=== PATIENT | female | born 1940 | race Caucasian/White ===

== ENCOUNTER 2016-09-13 15:16 | Emergency (ER) | payer OTHER ==
[2016-09-13] MEDS ORDERED: ONDANSETRON DISINTEGRATING 4 MG TAB ONE (15:43)
--- NOTE | 2016-09-13 15:58 | UCPHY ---
Addendum entered and electronically signed by Louise Major NP 09/13/16 17:29 : Add to medical decision-making: Patient able to ambulate steady without assistance prior to discharge. Please removed from medical decision making: No procedure was performed on this patient as she did not have a laceration to her posterior head, she had an abrasion only. Please removed the procedure note. Original Note: H & P Patient Type: Established Chief Complaint Nursing Narrative: Head injury, vertigo, nausea Time Seen by Provider: 09/13/16 15:40 HPI/ROS: HPI: 75-year-old female presents to urgent care with chief concern vertigo, head injury, nausea. Symptoms onset at 2:00 p.m. when she slipped on the ice and fell backwards striking her head on concrete. Likely loss of consciousness. Reports vertigo, nausea, vomiting, and her reports an uncoordinated gait. Reports neck pain. Denies visual changes, photophobia, shortness of breath, chest pain, back pain, abdominal pain. Denies weakness, numbness, or tingling of her extremities. Patient takes 2 aspirin twice daily as directed by her program planner Dr. Funes. ROS:10 point review of systems is negative other than as stated in HPI Source: Patient Exam Limitations: No limitations - Personal History Tetanus Vaccine Date: 2012 - Medical/Surgical History Hx Asthma: No Hx Chronic Respiratory Disease: No Hx Diabetes: No Hx Cardiac Disease: Yes Hx Renal Disease: No Hx Cirrhosis: No Hx Alcoholism: No Hx HIV/AIDS: No Hx Splenectomy or Spleen Trauma: No Other PMH: HYPOTHYROIDISM, polio as a child, heart failure. TONSILECTOMY. APPENDECTOMY. HYSTERECTOMY - Family History Significant Family History: No pertinent family hx - Social History Smoking Status: Former smoker Alcohol Use: None Drug Use: None Additional Social History: - Physical Exam Exam: Vital signs stable, reviewed by me General: Awake, calm, cooperative. No acute distress. Head: Normalocephalic, abrasion posterior head with minimal bleeding, no laceration, no ecchymosis or swelling noted Face: Atraumatic EENT: PERRLA. EOMI. No papilledema. no conjunctival injection or hemorrhage. TMs intact, translucent. No evidence of bleeding or otorrhea. Nasal septum midline, nasal mucosa pink. no evidence of drainage. Uvula midline, pharynx without redness. Neck: Mild midline tenderness Resp: Breathing unlabored. Lungs clear to auscultation bilaterally. CV: HRR. S1S2. No MRG. GI: Abdomen soft, nontender. Bowel sounds normoactive and positive x4 quadrants. : No CVA tenderness. Back: No midline thoracic or lumbar tenderness Skin: Warm, dry. No rashes noted. Capillary refill less than 2 seconds. Musculoskeletal: Strength equal and 5+ in all 4 extremities. Neuro: No focal neuro deficit. CN II through XII intact. Rapid alternating hand movements intact. Finger to nose intact. Memory and recall of 3/3 objects at 5 minutes intact. Upper and lower extremity DTRs 2+. Extremities: Full range of motion. Constitutional: Initial Vital Signs Temperature (C) 35.6 C L 09/13/16 15:59 Heart Rate 55 L 09/13/16 15:59 Respiratory Rate 24 H 09/13/16 15:59 Blood Pressure 141/86 H 09/13/16 15:59 O2 Sat (%) 100 09/13/16 15:59 O2 Delivery Mode Room Air Allergies/Adverse Reactions: No Known Allergies Allergy (Verified 09/13/16 16:03) Home Medications: Medication Instructions Recorded Avapro 08/26/09 Synthroid 08/26/09 Aspirin [Aspirin 81mg (*)] 09/13/16 Meclizine HCl [Antivert] 25 mg PO Q8 PRN #6 tablet 09/13/16 Ondansetron Odt [Zofran Odt 4 mg 4 mg PO Q4 PRN #6 tab 09/13/16 (*)] Vit E/Vit C/Magnesium/Zinc [Ecee 09/13/16 Plus Tablet] Medical Decision Making Procedures: After verbal consent was obtained and risks and benefits explained, the laceration was anesthetized using a total of [ ] ml of 0.5% Marcaine with epinephrine. Lac then irrigated per protocol by infrastructure technician. Under sterile procedure, the wound was explored to its base with a gloved finger and no foreign body was identified. No deep structure identified. Wound was then draped and sterile procedure followed during laceration repair. Wound was repaired using # [ ], [ ] sutures. After repair, laceration cleansed, bacitracin and sterile dressing applied. Procedure performed by myself. Procedure was simple. Pt tolerated the procedure well. ED Course/Re-evaluation: 75-year-old female presents to urgent care with head injury, status post fall, vertigo, nausea, vomiting. Also has midline cervical spine tenderness. Head CT without and cervical spine without ordered. Patient given 4 mg Zofran ODT for nausea. 1625: CT negative for evidence of intracranial bleed, or skull fracture. Patient continues to have nausea and vertigo. Given 8 mg ODT Zofran and 25 mg meclizine. Have counseled them regarding need for follow-up with primary care tomorrow, as well as symptoms for which to go to emergency department for further workup which includes worsening symptoms, vomiting, visual changes, dizziness, or worsening gait changes. and verbalize understanding , they are comfortable this plan. Differential Diagnosis: Differential diagnosis includes but is not limited to head injury, concussion, skull fracture, laceration, intracranial bleed, intracranial contusion, vertebral artery dissection - Data Points Medications Given: Discontinued Medications Meclizine HCl (Meclizine Hcl) 25 mg PO EDNOW ONE Stop: 09/13/16 16:29 Last Admin: 09/13/16 16:48 Dose: 25 mg Ondansetron HCl (Zofran Odt) 8 mg PO EDNOW ONE Stop: 09/13/16 16:30 Last Admin: 09/13/16 16:48 Dose: 8 mg Departure - Departure Disposition: Home, Routine, Self-Care Clinical Impression: Mechanical fall, Vertigo Head injury due to trauma Qualifiers: Encounter type: initial encounter Qualifier Code: (S09.90XA) Unspecified injury of head, initial encounter Cervical strain Qualifiers: Encounter type: initial encounter Qualifier Code: (S16.1XXA) Strain of muscle, fascia and tendon at neck level, initial encounter Concussion Qualifiers: Encounter type: initial encounter Loss of consciousness presence/duration: with LOC of unspecified duration Qualifier Code: (S06.0X9A) Concussion with loss of consciousness of unspecified duration, initial encounter Condition: Fair Instructions: Vertigo (ED), Acute Nausea and Vomiting (ED) Additional Instructions: Plan: 25 mg Antivert 3 every 8 hours as needed for vertigo 4 mg Zofran every 4-6 hours as needed for nausea Wound care to back of head-warm, soapy water, bacitracin, do this daily Follow up with Zarina Romano tomorrow for recheck without fail--When you call to schedule appointment, please let the office know you are an "ER follow up" appointment" Should symptoms worsen overnight including vomiting, vertigo, behavioral changes , lethargy, or other concerning symptoms, call 911 or go to emergency department at [facility] Referrals: Zarina Romano MD [Primary Care Provider] - As per Instructions Prescriptions: Meclizine HCl [Antivert] 25 mg PO Q8 PRN #6 tablet PRN Reason: Vertigo Ondansetron Odt [Zofran Odt 4 mg (*)] 4 mg PO Q4 PRN #6 tab PRN Reason: nausea & vomiting - PQRS PQRS Measurement: 134: Depression screening and followup, PRIME MD-PHQ2 (12 years and older) Over the last 2 weeks, how often have you been bothered by any of the following problems? 1. Feeling down, depressed, or hopeless? 2. Little interest or pleasure in doing things? Patient answered no to both 1 and 2 130: Documentation of medications. Reviewed all patient medications, doses, route and frequency. 226: Do you smoke? No 47: 65 and older: Advanced care planning. Patient has advanced directive 51: 18 years old and older with diagnosis of COPD, spirometry performance. Patient has no history of COPD 52: 18 years old and older with COPD and symptoms of COPD or FEV1<60% no history of COPD
[2016-09-13 16:28] VITALS: RESP 20
[2016-09-13] MEDS ORDERED: MECLIZINE HCL 25 MG TAB PO ONE (16:28)
[2016-09-13] MEDS ORDERED: ONDANSETRON DISINTEGRATING 4 MG TAB PO ONE (16:29)
[2016-09-13 17:40] VITALS: BP 156/78; PULSE 52; TEMP 97; O2SAT 100
--- NOTE | 2016-09-13 18:30 | CT ---
CT Brain (Without Contrast) September 13, 2016 at 1554 hours History: Trauma. Comparison: None. Technique: Axial computed tomographic images of the brain without contrast. Dose reduction techniques were utilized. Findings: Ventricles, cisterns, and sulci are widened consistent with atrophy. No hydrocephalus, mid line shift/herniation, or epidural/subdural hematomas. No acute intraparenchymal hemorrhage or mass e ffect. Cerebrovascular atherosclerosis. Hypodensities in the white matter of bilateral cerebral hemis pheres. Bone windows demonstrate no displaced fractures. Paranasal sinuses and mastoid air cells are clear. Impression: 1. Moderate atrophy. 2. No acute hemorrhage, hydrocephalus, or mass effect. 3. Cerebrovascular atherosclerosis. 4. No definite acute infarct. 5. Moderate microvascular ischemic disease.. Critical results relayed by Dr. Arsenio Crabtree to Louise Major NP, on September 13, 2016, at 1600 hours
--- NOTE | 2016-09-13 18:30 | CT ---
CT cervical spine without contrast. Clinical indication: Trauma, pain. Technique: 0.63 mm contiguous helical axial scanning through the cervical spine without contrast. Rou nicole reconstructions in the coronal and sagittal planes. Dose reduction technique was performed. COMPARISON: None relevant. FINDINGS: Bony alignment of the spine is normal, except for a small amount of anterolisthesis of L3 o n L4 secondary to a large amount of productive osteoarthritic change of the facet joints, worse on th e right than on the left. There is severe degenerative disk disease at C5-6, C6-7, and less severe at C7-T1. No evidence of fracture or dislocation. The upper lungs show some mild scarring. 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
== END 2016-09-13 17:21 | disposition home or self-care (01) ==
LOC: CED 15:16
DX: S00.91XA Abrasion of unspecified part of head, initial encounter (principal); S06.0X9A Concussion with loss of consciousness of unspecified duration, initial encounter; S16.1XXA Strain of muscle, fascia and tendon at neck level, initial encounter; W00.0XXA Fall on same level due to ice and snow, initial encounter; Z87.891 Personal history of nicotine dependence; Z87.74 Personal history of (corrected) congenital malformations of heart and circulatory system
CPT/HCPCS: 70450; 72125; G0463; 99215-PO

== ENCOUNTER → 2016-10-03 | Outpatient (CLI) | payer OTHER ==
--- NOTE | 2016-10-03 18:23 | CT ---
Unenhanced CT Scan of the Chest Clinical History: 75-year-old female who smoked for 15 years, although quit 25 years ago. She has a history of skin cancer. She presents for follow up of likely benign tiny pulmonary nodules seen on p revious imaging in 2015. Technique: A multidetector unenhanced helical CT scan was obtained from the base of the neck inferio rly to the upper abdomen, with images reformatted at 1.50 and 4/3 mm overlapping increments, and revi ewed at a variety of window and level settings. Parasagittal and paracoronal reconstructed images ar e reviewed on the workstation. The DFOV is 30.7 cm. A low dose protocol was utilized. Comparison Studies: Chest CT imaging dated March 15, 2016 and September 30, 2015. Findings: There is some stable chronic biapical pleuroparenchymal fibrosis. Again, there is a 3-mm calcified granuloma in the medial right upper lobe on series #4, image #36, a 4-mm subpleural noncalc ified nodule along the medial portion of the right major fissure on series #4, image #63, a 2-mm subp leural nodule laterally in the right lower lobe on series #4, image #89, a 7-mm calcified granuloma i n the superior segment of the left lower lobe on series #4, image #82, a 3-mm noncalcified pulmonary nodule in the posterior right lower lobe on series #4, image #101, a 2-mm calcified granuloma in the posterior right lower lobe on series #4, image #104, and a 2-mm calcified granuloma in the lateral ri ght lower lobe on series #4, image #123. These are all stable. There is no new pulmonary nodule, focal alveolar consolidation, pleural effusion, ground-glass opacit y, or peripheral interstitial edema. There is no adenopathy. There is stable ectasia of the ascendi ng thoracic aorta, measuring 3.8 x 3.8 cm. The heart size is normal. There is no pericardial effusi on. The visualized upper abdomen is unremarkable. The osseous structures are age-appropriate. Impression: No significant change in the stable benign findings, compared to previous studies from 2 016. No further follow up is warranted.
== END ==
LOC: FIMAGING 11:47
PROVIDERS: ATTEND Internal Medicine Critical Care Medicine
DX: R91.1 Solitary pulmonary nodule (principal); Z87.891 Personal history of nicotine dependence; Z85.828 Personal history of other malignant neoplasm of skin

== ENCOUNTER → 2017-02-03 | Outpatient (CLI) | payer OTHER | LOC: FIMAGING 14:21 | PROVIDERS: ATTEND Internal Medicine Cardiovascular Disease | DX: I67.2 Cerebral atherosclerosis (principal); I67.82 Cerebral ischemia; S09.90XD Unspecified injury of head, subsequent encounter ==

== ENCOUNTER → 2017-03-03 | Outpatient (CLI) | payer OTHER | LOC: FIMAGING 14:41 | PROVIDERS: ATTEND Internal Medicine Cardiovascular Disease | DX: R55 Syncope and collapse (principal); G93.9 Disorder of brain, unspecified ==

== ENCOUNTER 2017-08-30 19:08 | Inpatient (IN) | payer OTHER ==
[2017-08-30] MEDS ORDERED: NS 500 ML IV ONE (20:05)
--- NOTE | 2017-08-30 20:10 | EDPHY ---
H & P Time Seen by Provider: 08/30/17 19:54 HPI/ROS: CHIEF COMPLAINT: Vomiting, right leg pain, difficulty speaking HISTORY OF PRESENT ILLNESS: Patient is a 76-year-old female who presents emergency department multiple complaints. The patient went for walk this afternoon and she was feeling well. When she was returning home she developed right leg pain. This radiated into her right lower back. She laid on the couch. After about 20 min she had an episode of nausea and vomiting. She describes some mild abdominal discomfort that is resolved. She has no abdominal pain at this time. The patient's heart rates that she had difficulty speaking after her episode of emesis. She was unable to find words. The patient denies any headache or neck pain. No recent fall. No confusion. No focal weakness or numbness. Patient denies cough or shortness of breath. No sore throat. Patient has had no diarrhea. No dysuria or frequency. REVIEW OF SYSTEMS: My complete review of systems is negative except as mentioned in the HPI. Past Medical/Surgical History: Includes hypothyroidism, polio as a child, heart failure that is being treated by Dr. Funes. Patient has severe microscopic gliosis. Past surgical history: Includes tonsillectomy, appendectomy, hysterectomy Smoking Status: Former smoker Physical Exam: 37.5, 132/73, 94, 20, 92% on room air GENERAL: Well-appearing, in no acute distress, alert. HEENT: Eyes normal to inspection, normal pharynx, no signs of dehydration. NECK: No thyromegaly, no lymphadenopathy, supple. RESPIRATORY: Clear to auscultation bilaterally, no rales, rhonchi or wheezing. CVS: Regular rate and rhythm, no rubs, murmurs, or gallops. ABDOMEN: Soft, nontender, nondistended, no organomegaly. BACK: Normal to inspection, no CVA tenderness. SKIN: Normal color, no rash, warm, dry. No pallor. EXTREMITIES: No pedal edema, no calf tenderness, no Homans sign or cords, no joint swelling. NEURO/PSYCH: Alert and oriented x3, normal mood and affect, normal motor sensory exam. No obvious cranial nerve deficit. Constitutional: Initial Vital Signs Temperature (C) 37.5 C 08/30/17 19:22 Heart Rate 94 08/30/17 19:22 Respiratory Rate 20 08/30/17 19:22 Blood Pressure 132/73 H 08/30/17 19:22 O2 Sat (%) 92 08/30/17 19:22 O2 Delivery Mode Room Air Allergies/Adverse Reactions: No Known Allergies Allergy (Verified 08/30/17 19:22) Home Medications: Medication Instructions Recorded Avapro 08/26/09 Synthroid 08/26/09 Aspirin [Aspirin 81mg (*)] 09/13/16 Meclizine HCl [Antivert] 25 mg PO Q8 PRN #6 tablet 09/13/16 Ondansetron Odt [Zofran Odt 4 mg 4 mg PO Q4 PRN #6 tab 09/13/16 (*)] Vit E/Vit C/Magnesium/Zinc [Ecee 09/13/16 Plus Tablet] Medical Decision Making - Diagnostics Imaging Results: Imaging Impressions Head CT 08/30/17 20:05 Impression: 1. No acute abnormality. 2. Remote lacunar infarct in the right anterior limb internal capsule. 3. Severe microvascular ischemic change throughout the supratentorial white matter. 4. Mild age-related volume loss. Dr. West discussed these findings by telephone with MACHO NICOLE on 2017 21:13. Chest X-Ray 08/30/17 20:06 Impression: No acute thoracic abnormality. ED Course/Re-evaluation: In the emergency department I discussed possible etiologies with the patient. I answered all her questions. It was noted that when she was brought back to room she had an elevated temperature. Laboratory studies, EKG, chest x-ray, head CT were ordered. Blood cultures are pending. Reviewed the patient's lab studies. Her white count is normal. She is mildly anemic. Chemistry panel is notable for slightly low potassium. She is minimally elevated LFTs. UA is positive. Chest x-ray: No acute disease Head CT: Please refer the dictated report by Dr. Kavin Johnson Influenza negative The patient was given Rocephin 1 g IV I discussed the result with the patient. On recheck she had no focal neurologic deficits. I discussed the findings with Dr. Valdez who will admit the patient for further observation. Differential Diagnosis: Differential includes but is not limited to ACS, acute SC, small-bowel obstruction, perforation, pancreatitis, cholecystitis, urinary tract infection, pyelonephritis, CVA dissection, aneurysm, thyroid disease - Data Points Laboratory Results: Laboratory Results 08/30/17 19:50 08/30/17 19:50 08/30/17 08/30/17 08/30/17 19:50 19:50 19:50 WBC RBC Hgb Hct MCV MCH MCHC RDW Plt Count MPV Neut % (Auto) Lymph % (Auto) [place] % (Auto) Eos % (Auto) Baso % (Auto) Nucleat RBC Rel Count Absolute Neuts (auto) Absolute Lymphs (auto) Absolute Monos (auto) Absolute Eos (auto) Absolute Basos (auto) Absolute Nucleated RBC Immature Gran % Immature Gran # PT INR APTT Sodium 140 mEq/L mEq/L (134-144) Potassium 3.4 mEq/L L mEq/L (3.5-5.2) Chloride 103 mEq/L mEq/L (97-110) Carbon Dioxide 26 mEq/l mEq/l (22-31) Anion Gap 11 mEq/L mEq/L (8-16) BUN 19 mg/dL mg/dL (7-23) Creatinine 0.8 mg/dL mg/dL (0.6-1.0) Estimated GFR > 60 Glucose 104 mg/dL H mg/dL (70-100) Calcium 9.5 mg/dL mg/dL (8.5-10.4) Total Bilirubin 2.1 mg/dL H mg/dL (0.1-1.4) Conjugated Bilirubin 0.3 mg/dL mg/dL (0.0-0.5) Unconjugated Bilirubin 1.8 mg/dL H mg/dL (0.0-1.1) AST 30 IU/L IU/L (14-46) ALT 36 IU/L IU/L (9-52) Alkaline Phosphatase 79 IU/L IU/L (38-126) Troponin I < 0.012 ng/mL ng/mL (0.000-0.034) Total Protein 6.6 g/dL g/dL (6.3-8.2) Albumin 4.0 g/dL g/dL (3.5-5.0) Lipase 39 IU/L IU/L (23-300) TSH 1.200 uIU/mL uIU/mL (0.465-4.680) Urine Color YELLOW Urine Appearance HAZY Urine pH 7.0 (5.0-7.5) Ur Specific [place] 1.009 (1.002-1.030) Urine Protein NEGATIVE (NEGATIVE) Urine Ketones TRACE H (NEGATIVE) Urine Blood 2+ H (NEGATIVE) Urine Nitrate POSITIVE H (NEGATIVE) Urine Bilirubin NEGATIVE (NEGATIVE) Urine Urobilinogen NEGATIVE EU EU (0.2-1.0) Ur Leukocyte Esterase NEGATIVE (NEGATIVE) Urine RBC 5-10 /hpf H /hpf (0-3) Urine WBC 3-5 /hpf H /hpf (0-3) Ur Epithelial Cells TRACE /lpf /lpf (NONE-1+) Urine Bacteria TRACE /hpf H /hpf (NONE SEEN) Urine Glucose NEGATIVE (NEGATIVE) Nasal Influenza A PCR NEGATIVE FOR FLU A (NEGATIVE) Nasal Influenza B PCR NEGATIVE FOR FLU B (NEGATIVE) 08/30/17 08/30/17 19:50 19:50 WBC 8.62 10^3/uL 10^3/uL (3.80-9.50) RBC 3.67 10^6/uL L 10^6/uL (4.18-5.33) Hgb 12.3 g/dL L g/dL (12.6-16.3) Hct 35.3 % L % (38.0-47.0) MCV 96.2 fL fL (81.5-99.8) MCH 33.5 pg pg (27.9-34.1) MCHC 34.8 g/dL g/dL (32.4-36.7) RDW 12.6 % % (11.5-15.2) Plt Count 196 10^3/uL 10^3/uL (150-400) MPV 10.1 fL fL (8.7-11.7) Neut % (Auto) 93.3 % H % (39.3-74.2) Lymph % (Auto) 5.0 % L % (15.0-45.0) [place] % (Auto) 0.3 % L % (4.5-13.0) Eos % (Auto) 0.3 % L % (0.6-7.6) Baso % (Auto) 0.5 % % (0.3-1.7) Nucleat RBC Rel Count 0.0 % % (0.0-0.2) Absolute Neuts (auto) 8.04 10^3/uL H 10^3/uL (1.70-6.50) Absolute Lymphs (auto) 0.43 10^3/uL L 10^3/uL (1.00-3.00) Absolute Monos (auto) 0.03 10^3/uL L 10^3/uL (0.30-0.80) Absolute Eos (auto) 0.03 10^3/uL 10^3/uL (0.03-0.40) Absolute Basos (auto) 0.04 10^3/uL 10^3/uL (0.02-0.10) Absolute Nucleated RBC 0.00 10^3/uL 10^3/uL (0-0.01) Immature Gran % 0.6 % % (0.0-1.1) Immature Gran # 0.05 10^3/uL 10^3/uL (0.00-0.10) PT 13.6 SEC SEC (12.0-15.0) INR 1.02 (0.83-1.16) APTT 24.1 SEC SEC (23.0-38.0) Sodium Potassium Chloride Carbon Dioxide Anion Gap BUN Creatinine Estimated GFR Glucose Calcium Total Bilirubin Conjugated Bilirubin Unconjugated Bilirubin AST ALT Alkaline Phosphatase Troponin I Total Protein Albumin Lipase TSH Urine Color Urine Appearance Urine pH Ur Specific [place] Urine Protein Urine Ketones Urine Blood Urine Nitrate Urine Bilirubin Urine Urobilinogen Ur Leukocyte Esterase Urine RBC Urine WBC Ur Epithelial Cells Urine Bacteria Urine Glucose Nasal Influenza A PCR Nasal Influenza B PCR Medications Given: Ceftriaxone Sodium/Dextrose (Rocephin 1 Gm (Premix)) 50 mls @ 100 mls/hr IV EDNOW ONE PRN Reason: Protocol Stop: 08/30/17 21:36 Last Admin: 08/30/17 21:17 Dose: 50 mls Discontinued Medications Acetaminophen (Tylenol) 1,000 mg PO EDNOW ONE Stop: 08/30/17 20:25 Last Admin: 08/30/17 20:31 Dose: 1,000 mg Sodium Chloride (Ns) 500 mls @ 500 mls/hr IV EDNOW ONE PRN Reason: Protocol Stop: 08/30/17 21:04 Last Admin: 08/30/17 20:19 Dose: 500 mls Departure - Departure Disposition: [facility] Acute Clinical Impression: Urinary tract infection Qualifiers: Urinary tract infection type: acute cystitis Hematuria presence: with hematuria Qualified Code(s): N30.01 - Acute cystitis with hematuria Fever Qualifiers: Fever type: unspecified Qualified Code(s): R50.9 - Fever, unspecified Condition: Good Referrals: Zarina Romano MD [Primary Care Provider] - As per Instructions
[2017-08-30 20:15] LABS: PLATELET COUNT 196 10^3/uL (150-400)
[2017-08-30] MEDS ORDERED: ACETAMINOPHEN 500 MG TAB PO ONE (20:24)
[2017-08-30] MEDS ORDERED: ACETAMINOPHEN 500 MG TAB ONE (20:26)
[2017-08-30 21:04] LABS: INR 1.02 (0.83-1.16); PROTIME(PATIENT) 13.6 SEC (12.0-15.0)
[2017-08-30] MEDS ORDERED: ONDANSETRON DISINTEGRATING 4 MG TAB PO PRN (21:31)
[2017-08-30] MEDS ORDERED: ACETAMINOPHEN 325 MG TAB PO PRN (21:31)
[2017-08-30] MEDS ORDERED: ONDANSETRON 4 MG/2 ML VIAL IVP PRN (21:31)
[2017-08-30] MEDS ORDERED: IOPAMIDOL (ISOVUE 370) 100 ML BTL IV ONE (21:39)
[2017-08-30] MEDS ORDERED: POTASSIUM CL 20 MEQ TAB PO ONE (22:00)
--- NOTE | 2017-08-30 22:54 | GHP ---
[f rep st] HISTORY AND PHYSICAL DATE OF ADMISSION: 08/30/2017 CHIEF COMPLAINT: Vomiting, aphasia. HISTORY OF PRESENT ILLNESS: This is a 76-year-old female, who presents with aphasia. She went on a walk with her today. She got home and was complaining of some leg pain. She then vomited pr ofusely. After that, she had some difficulty speaking. All of these symptoms have resolved and she is feeling well now. She had no worsening confusion. She had no numbness or weakness anywhere. PAST MEDICAL/SURGICAL HISTORY: 1. Polio. 2. Hypothyroid. 3. She is being treated by Dr. Funes for possible heart failure. 4. Microscopic gliosis. 5. Tonsillectomy. 6. Appendectomy. 7. Hysterectomy. MEDICATIONS: Please see medication reconciliation. ALLERGIES: No known drug allergies. FAMILY HISTORY: Reviewed. Noncontributory. SOCIAL HISTORY: She is accompanied by her . She drinks eusebio at night. She does not smoke. REVIEW OF SYSTEMS: A 10-point review of systems is conducted and is negative, except per HPI. PHYSICAL EXAMINATION: VITAL SIGNS: Blood pressure 125/69, heart rate 81, respiration rate 18, satti ng at 97% on room air. T-max is 38.9. GENERAL: The patient is a very pleasant female, who is comfo rtable, resting in bed. No acute distress. HEENT: Shows her to be normocephalic, atraumatic. CARD IOVASCULAR: Regular rate and rhythm. She has a 2/6 systolic murmur. PULMONARY: Lungs are clear to auscultation bilaterally. ABDOMEN: Soft, nontender, nondistended. SKIN: Shows no rash. : No Nicole. NEUROLOGIC: Shows her to be alert and oriented x3. She looks to her to answer some questions. Cranial nerves 2-12 are intact. Strength is intact in her upper and lower extremities. Sensation to light touch is intact. She can repeat words. She has no pronator drift. PSYCHIATRIC: Shows a normal mood and affect. LABS: Hemoglobin is 12. INR is 1. Basic metabolic panel shows potassium of 3.4. Unconjugated bili yeh is 1.8. Troponin is negative. TSH is 1.2. Urinalysis shows 3-5 whites, nitrites. She is neg ative for influenza. DATA: 1. I discussed this with Dr. Pandya, will admit to Med/Surg. 2. I personally reviewed and interpreted her chest x-ray. This shows nothing acute. 3. I reviewed her head CT, it shows a remote lacunar infarct in the right anterior limb of internal capsule, and severe microvascular ischemic change. IMPRESSION/PLAN: 1. Aphasia: I suspect that this is either a transient ischemic attack or unmasking of old symptoms in the setting of infection. She has known severe ischemic microvascular ischemic change in her brai n. She has a remote lacunar infarct. I think it is reasonable to perform a full transient ischemic attack workup on her, which I have ordered. I have also asked for a neurology consult. I started he r on an aspirin, would consider statin for LDL above 70. 2. Urinary tract infection: We will treat with Rocephin given symptoms of vomiting, as well as feve r. We will follow her fever curve while she is here. 3. Hypothyroid: Normal TSH. 4. Anemia: Stable. 5. 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 6. Hypokalemia: Replete. 7. Code status: She would like to be full code for now. 8. Venous thromboembolism risk is moderate. I will give her Lovenox. /[id number]/MODL
[2017-08-30] MEDS ORDERED: POTASSIUM CL 20 MEQ/15 ML UDCUP PO ONE (23:00)
[2017-08-30] MEDS: IRBESARTAN 150 MG TAB PO SCH (23:32)
[2017-08-30] MEDS: CHOLECALCIFEROL VIT D3 1,000 UNITS TAB PO SCH (23:32)
[2017-08-30] MEDS: ASPIRIN 81 MG CHEWABLE TAB PO SCH (23:34)
[2017-08-31] MEDS: LEVOTHYROXINE 75 MCG TAB PO SCH (05:24)
--- NOTE | 2017-08-31 08:45 | HOSPPROG ---
Hospitalist Progress Note Assessment/Plan: #E coli bacteremia: positive cultures. IV CTX. Repeat blood cultures tomorrow #UTI: presumed E Coli, culture pending. Abx as above #Aphasia: h/o TIA. Old lacunar infarct on CT. h/o SVT on Holter, no afib (January 2017) -cont telemetry, PT/OT/speech -start ASA, statin if LDL>70. MRI, carotid U/S, echo pending #Hypokalemia: repleted #Diet: regular #DVT ppx: Lovenox #Disp: warrant inpt admission for E coli bacteremia requiring IV abx, MRI, therapy Subjective: more energy and thinking more clearly today Objective: Vital Signs Temp Pulse Resp BP Pulse Ox 37.7 C 75 16 108/58 L 92 08/31/17 07:57 08/31/17 07:57 08/31/17 07:57 08/31/17 07:57 08/31/17 07:57 Laboratory Results 08/31/17 06:50 08/31/17 06:50 08/30/17 08/31/17 09/01/17 05:59 05:59 05:59 Intake Total 1250 Output Total 750 300 Balance 500 -300 PT 13.6 SEC (12.0-15.0) 08/30/17 19:50 INR 1.02 (0.83-1.16) 08/30/17 19:50 - Physical Exam Constitutional: no apparent distress, other (tired appearing) Ears, Nose, Mouth, Throat: dry mucous membranes Cardiovascular: regular rate and rhythym, no murmur, rub, or gallop, No systolic murmur Respiratory: no respiratory distress, no rales or rhonchi Gastrointestinal: normoactive bowel sounds, soft, non-tender abdomen Genitourinary: No no bladder fullness, No no bladder tenderness Skin: warm Musculoskeletal: full muscle strength Neurologic: AAOx3, CN II-XII Intact, No facial droop Psychiatric: interacting appropriately ICD10 Worksheet Patient Problems: Problems Problem Status Onset Fever Acute Urinary tract infection Acute
[2017-08-31] MEDS ORDERED: ASPIRIN 81 MG CHEWABLE TAB PO SCH ×2 (09:00→21:00)
[2017-08-31] MEDS: ENOXAPARIN 40 MG/0.4 ML SYR SC SCH (09:38)
--- NOTE | 2017-08-31 10:06 | NEUROPROG ---
Assessment: [id number] Neurology Consult Note CC: Speaking difficulty HPI: Pt admitted to [facility] on 08/30/17 for reported speech problems. She went on a walk then developed leg pain then vomited profusely and had difficulty speaking. All symptoms resolved. She was admitted to [facility] and started on an aspirin. She was felt to have a UTI in the ER. Head CT normal. I initially saw the patient on 08/31/17. She reported years of slowly progressing aphasia. She reported she was followed by Dr. Lamin Mckeon for this issue. PMHx: progressive aphasia for years, polio, hypothyroid, possible heart failure , microscopic gliosis, tonsillectomy, appi, hysterectomy SHx: FHx: NC ROS: No acute fever, total vision loss, active severe chest pain, respiratory failure, total body severe rash, total bowel/bladder incontinence, psychosis, active seizures, or active bleeding O: VS reviewed General: Alert Eyes: Fundoscopic exam not able to visualize optic disks CV: Heart RRR, no murmur, no carotid bruit Lungs: Clear to auscultation bilaterally, no rhonci or rales Neuro: - Mental: . Oriented x person/place but not date . concentration appears normal . speech shows a mild expressive and receptive aphasia . memory difficult to test due to aphasia . fund of knowledge appear intact - Cranial Nerves: . II: PERRL, VFFTC . III/IV/: EOMI, no nystagmus, normal smooth pursuits, no Ptosis . V: facial sensation intact to LT . VII: face symmetric to eye closure and smile . VIII: hearing intact to conversation . IX/X: uvula raises symmetrically . XI: SCM 5/5 B/L strength . XII: tongue protrudes midline w/nl strength - Motor: . Tone: normal tone in all 4 extrem . Strength: no pronator drift, strength 5/5 throughout (B/L delt, bic, tri, hand architectural technician, hf/he, df/pf) - Reflexes: B/L bic/BR/patella 2/4 - Sensory: all 4 extrem intact to light touch - Coord: [id number]-[id number] wnl, ERIC wnl, kbuf-be-xney wnl - Gait: deferred - NIH SS 1 (aphasia, mild) Labs: 08/30/17- CBC Hct 35.3L, Coags wnl, H1AC 5.4, TSH wnl Rads: 08/30/17- Head CT: no acute changes, remote R internal capsule lacunar infarct, severe CMVD, mild atrophy (I personally visualized the images on 08/31/17) Assessment: 1. Slowly Progressing Aphasia for years: Neurologic exam on 08/31/17 showed mild aphasia. Head CT unremarkable. Pt felt her symptoms transiently worsened yesterday so I will obtain a full stroke evaluation to further investigate reason. If MRI, TTE, and carotid U/S are unremarkable then pt can be discharged on aspirin 81 mg qd with f/u with her primary neurologist, Dr. Lamin Mckeon. 2. UTI Plan: - Brain MRI w/o con, MRA - Carotid U/S - TTE - 24 hour telemetry - Begin aspirin 81 mg qd for stroke prevention - Blood pressure goal < 140/90 - H1AC < 7.0 (5.4) - LDL < 70 (pending) - Agree with PT/OT/Speech consult - Outpatient f/u with neurology clinic 1-4 weeks after discharge with Dr. Lamin Mckeon (her primary neurologist) Objective: Vital Signs Temp Pulse Resp BP Pulse Ox 37.7 C 75 16 108/58 L 92 08/31/17 07:57 08/31/17 07:57 08/31/17 07:57 08/31/17 07:57 08/31/17 07:57 Laboratory Results 08/31/17 06:50 08/31/17 06:50 08/30/17 08/31/17 09/01/17 05:59 05:59 05:59 Intake Total 1250 Output Total 750 300 Balance 500 -300 PT 13.6 SEC (12.0-15.0) 08/30/17 19:50 INR 1.02 (0.83-1.16) 08/30/17 19:50 Allergies/Adverse Reactions: No Known Allergies Allergy (Verified 08/30/17 19:22)
--- NOTE | 2017-08-31 11:56 | CPEKG ---
Heart Rate: 68 RR Interval: 882 P-R Interval: 188 QRSD Interval: 88 QT Interval: 448 QTC Interval: 477 P [place]: 85 QRS [place]: 66 T Wave [place]: 64 EKG Severity - NORMAL ECG - EKG Impression: SINUS RHYTHM Electronically Signed By: Tuan Esteves 31-Aug-2017 16:03:00
[2017-08-31] MEDS ORDERED: LR 1,000 ML IV SCH (12:00)
--- NOTE | 2017-08-31 12:40 | ASMTCMCOM ---
CM Note CM Note Notes: Pt to get stroke evaluation per Dr Hebert. Anticipate pt will DC with no needs when medically cleared. CM available if DC needs change. Date Signed: 08/31/2017 12:39 PM Electronically Signed By:Yoko Almaraz LCSW
--- NOTE | 2017-08-31 14:53 | PDMN ---
Medical Necessity Medical necessity: Pt meets INPT criteria per MD as of 08/31/17 and MCG Systemic or Infectious Condition GRG (documented E coli bacteremia, UTI, aphasia per MD progress note).
--- NOTE | 2017-08-31 15:56 | ECHO ---
[email or web address] [address] Main: [phone] Fax: Transthoracic Echocardiogram Name: ROBBY RILEY MR#: [id number] Study Date: 08/31/2017 Study Time: 09:25 AM Date of : 1940 Age: 76 year(s) Height: 165.1 cm (65 in.) Weight: 52.16 kg (115 lb.) BSA: 1.56 m2 Gender: Female Examination: Echo Indication: Aphasia Image Quality: Contrast: Requested by: Fidel Valdez BP: 110 mmHg/65 mmHg Heart Rate: Rhythm: Indication: Aphasia Procedure Staff Manager Corporate Strategy: Rick Villegas Reading Physician: Tuan Esteves Requesting Provider: Conclusions: Normal size left ventricle. No LV hypertrophy. GUIDO present. Global hypercontractility of the left ventricle. EF is 68 %. No regional wall motion abnormality. Diastolic dysfunction is present. . GUIDO present. The LV is hyperdynamic with chordal GUIDO, the max PG is 46 mmHg.. The aortic valve is tri-leaflet. The tricuspid valve is normal in appearance and function. Measurements: Chambers Valvular Assessment AV/MV Valvular Assessment TV/PV Normal Normal Normal Name Value Range Name Value Range Name Value Range Ao Nayeli (MM): 2.7 cm (2.2 cm-3.7 AV Vmax: 2.39 m/s (1 m/s-1.7 TR Vmax: 2.58 mm/s ( - ) cm) m/s) TR PGmax: 27 mmHg ( - ) IVSd (2D): 0.6 cm (0.6 cm-1.1 AV maxP mmHg ( - ) syst. PAP: 32 mmHg ( - ) cm) LVOT Vmax: 2.42 m/s (0.7 m/s-1.1 PV Vmax: 1.17 m/s (0.6 m/s-0.9 LVDd (2D): 4.5 cm (3.9 cm-5.3 m/s) m/s) cm) MV E Vmax: 0.95 m/s ( - ) PV PGmax: 5 mmHg ( - ) LVDs (2D): 2.8 cm (2.1 cm-4 MV A Vmax: 1.11 m/s ( - ) cm) MV E/A: 0.86 ( - ) LVPWd (2D): 0.8 cm ( - ) LVEF (2D): 68 (>=54 %) Continued Measurements: Chambers Valvular Assessment TV/PV Patient: ROBBY RILEY Study Date: 08/31/2017 Page 1 of 2 09:25 AM Name Value Name Value LADs Lon.3 cm CVP (est.): 5 mmHg LA Area: 13.9 cm2 Additional Vessels Name Value Inferior Vena Cava: 2.5 cm Findings: Left Ventricle: Normal size left ventricle. No LV hypertrophy. GUIDO present. Global hypercontractility of the left ventricle. EF is 68 %. No regional wall motion abnormality. Diastolic dysfunction is present. . Right Ventricle: Normal size right ventricle. Normal RV function. Left Atrium: The left atrium is normal in size. Right Atrium: The right atrium is normal in size. Mitral Valve: The mitral valve is normal in appearance. GUIDO present. The LV is hyperdynamic with chordal GUIDO, the max PG is 46 mmHg.. Aortic Valve: The aortic valve is tri-leaflet. Tricuspid Valve: The tricuspid valve is normal in appearance and function. Pulmonic Valve: The pulmonic valve is normal in appearance and function. Aorta: The aorta is normal. IVC: The IVC is dilated at 2.5 cm. Pericardium: No pericardial effusion. (No Signature Object) Patient: ROBBY RILEY Study Date: 08/31/2017 Page 2 of 2 09:25 AM [id number]
[2017-08-31] MEDS: IRBESARTAN 150 MG TAB PO SCH (19:55)
[2017-08-31] MEDS ORDERED: IRBESARTAN 150 MG TAB PO SCH (21:00)
[2017-08-31] MEDS ORDERED: CHOLECALCIFEROL VIT D3 1,000 UNITS TAB PO SCH (21:00)
[2017-08-31] MEDS: CHOLECALCIFEROL VIT D3 1,000 UNITS TAB PO SCH (21:19)
[2017-08-31] MEDS: ASPIRIN 81 MG CHEWABLE TAB PO SCH (21:19)
[2017-09-01] MEDS: LEVOTHYROXINE 75 MCG TAB PO SCH (05:12)
[2017-09-01] MEDS: ENOXAPARIN 40 MG/0.4 ML SYR SC SCH (09:24)
--- NOTE | 2017-09-01 10:58 | NEUROPROG ---
Assessment: [id number] Neurology Consult Note CC: F/U for aphasia, memory difficulties Narrative Summary: Pt admitted to [facility] on 08/30/17 for reported speech problems. She went on a walk then developed leg pain then vomited profusely and had difficulty speaking. All symptoms resolved. She was admitted to [facility] and started on an aspirin. She was felt to have a UTI in the ER. Head CT normal. I initially saw the patient on 08/31/17. She reported years of slowly progressing aphasia. She reported she was followed by Dr. Lamin Mckeon for this issue. HPI: Inpt F/U 09/01/17. Brain MRI, MRA, carotid U/S, TTE, and cardiac telemetry all unremarkable for acute cause of her aphasia. I reviewed her clinic notes from Dr. Mckeon and it appears she has been seeing him for progressive memory loss. It seems like her current aphasia is likely due to an underlying neurodegenerative disease that is likely in the dementia spectrum. No further w/u or treatment needed at this time. Pt can f/u in the outpatient setting with Dr. Mckeon. PMHx: progressive aphasia and memory loss for years (likely dementia), polio, hypothyroid, possible heart failure, microscopic gliosis, tonsillectomy, appi, hysterectomy SHx: FHx: NC ROS: No acute fever, total vision loss, active severe chest pain, respiratory failure, total body severe rash, total bowel/bladder incontinence, psychosis, active seizures, or active bleeding Labs: 08/30/17- CBC Hct 35.3L, Coags wnl, H1AC 5.4, TSH wnl 09/01/17- LDL 48L Rads: 08/30/17- Head CT: no acute changes, remote R internal capsule lacunar infarct, severe CMVD, mild atrophy 08/31/17- TTE: no cardiac thrombus seen 08/31/17- 24 hour telemetry: no afib reported 08/31/17- Brain MRI w/o con: no acute changes, extensive white matter disease minimally progressed from 2006, atrophy 08/31/17- Brain MRA: unremarkable, 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 Slowly Progressing Aphasia and memory deficits for years likely from dementia : Neurologic exam on 08/31/17 showed mild aphasia. Brain MRI w/o con on 08/31/17 showed no acute changes, extensive white matter disease minimally progressed from 2006, atrophy. Brain MRA, carotid U/S, 24 hour telemetry, and TTE showed no alternative cause of her neurologic symptoms. Pt can be discharged and f/u with her primary neurologist, Dr. Lamin Mckeon. 2. UTI Plan: - Outpatient f/u with neurology clinic 1-4 weeks after discharge with Dr. Lamin Mckeon (her primary neurologist) 35 min spent with patient and her , majority of time spent counseling on her symptoms and likely causes. Objective: Vital Signs Temp Pulse Resp BP Pulse Ox 37.3 C 61 18 122/82 H 95 09/01/17 08:22 09/01/17 08:22 09/01/17 08:22 09/01/17 08:22 09/01/17 08:22 Laboratory Results 09/01/17 04:16 08/31/17 09/01/17 09/02/17 05:59 05:59 05:59 Intake Total 950 Output Total 325 Balance 625 PT 13.6 SEC (12.0-15.0) 08/30/17 19:50 INR 1.02 (0.83-1.16) 08/30/17 19:50 Allergies/Adverse Reactions: No Known Drug Allergies Allergy (Verified 08/31/17 11:14)
[2017-09-01] MEDS ORDERED: IOPAMIDOL (ISOVUE-300) 100 ML BTL ONE (16:24)
[2017-09-01] MEDS ORDERED: LR 1,000 ML IV SCH (17:00)
--- NOTE | 2017-09-01 17:47 | HOSPPROG ---
Hospitalist Progress Note Assessment/Plan: Called by radiology regarding renal abscess seen on CT. IR can drain it, but they ask for ID consult prior to procedure for guidance regarding whether to leave in drain or not. I will make patient NPO after midnight and hold Lovenox. She is stable so okay for procedure tomorrow. Objective: Vital Signs Temp Pulse Resp BP Pulse Ox 37.1 C 70 18 153/82 H 95 09/01/17 16:16 09/01/17 16:16 09/01/17 16:16 09/01/17 16:16 09/01/17 16:16 Laboratory Results 09/01/17 04:16 08/31/17 09/01/17 09/02/17 05:59 05:59 05:59 Intake Total 950 Output Total 325 Balance 625 PT 13.6 SEC (12.0-15.0) 08/30/17 19:50 INR 1.02 (0.83-1.16) 08/30/17 19:50 ICD10 Worksheet Patient Problems: Problems Problem Status Onset Fever Acute Urinary tract infection Acute
[2017-09-01] MEDS: ASPIRIN 81 MG CHEWABLE TAB PO SCH (21:57)
[2017-09-01] MEDS: CHOLECALCIFEROL VIT D3 1,000 UNITS TAB PO SCH (21:58)
[2017-09-01] MEDS: IRBESARTAN 150 MG TAB PO SCH (22:02)
[2017-09-02] MEDS: LEVOTHYROXINE 75 MCG TAB PO SCH (06:00)
--- NOTE | 2017-09-02 08:39 | HOSPPROG ---
Hospitalist Progress Note Assessment/Plan: #E coli bacteremia: due to renal abscess #Renal abscess: guidelines rec medical treatment over intervention with abscess <5cm. Cont IV CTX and await sensitivities #Aphasia: h/o TIA. Old lacunar infarct on CT. h/o SVT on Holter, no afib (January 2017) -cont telemetry, PT/OT/speech -no new abnormality on MRI/MRA. TTE normal. Suspect memory loss from underlying dementia. FU with Dr. Mckeon #Leukocytosis: resolved on abx #Hypokalemia: repleted #Diet: regular #DVT ppx: Lovenox #Disp: warrant inpt admission for E coli bacteremia requiring IV abx, abscess drainage Subjective: no abd pain/flank pain Objective: Vital Signs Temp Pulse Resp BP Pulse Ox 36.9 C 61 14 127/71 H 91 L 09/02/17 07:52 09/02/17 07:52 09/02/17 07:52 09/02/17 07:52 09/02/17 07:52 Laboratory Results 09/02/17 04:18 09/02/17 04:18 09/01/17 09/02/17 09/03/17 05:59 05:59 05:59 Intake Total 950 1501 Output Total 325 Balance 625 1501 PT 13.6 SEC (12.0-15.0) 08/30/17 19:50 INR 1.02 (0.83-1.16) 08/30/17 19:50 - Time Spent With Patient Time Spent with Patient: greater than 35 minutes Time Spent with Patient: Greater than 35 minutes spent on this patients care, greater than 50% of time spent counseling, educating, and coordinating care regarding the above mentioned plan. - Physical Exam Constitutional: no apparent distress Eyes: PERRL Ears, Nose, Mouth, Throat: moist mucous membranes Cardiovascular: regular rate and rhythym, no murmur, rub, or gallop Respiratory: no respiratory distress, no rales or rhonchi Gastrointestinal: normoactive bowel sounds, soft, non-tender abdomen Genitourinary: no bladder fullness, other (no CVA TTP) Skin: warm Neurologic: AAOx3, CN II-XII Intact Psychiatric: interacting appropriately, other (tangential in her thoughts) ICD10 Worksheet Patient Problems: Problems Problem Status Onset Fever Acute Urinary tract infection Acute
--- NOTE | 2017-09-02 12:27 | GCON ---
[f rep st] CONSULTATION INFECTIOUS DISEASE CONSULTATION DATE OF CONSULTATION: 09/02/2017 REFERRING PHYSICIAN: Yvette Farias MD REASON FOR CONSULTATION: Right renal abscess. HISTORY OF PRESENT ILLNESS: Patient is a 76-year-old female with a past medical history of dementia, whom I am asked to see in consultation for a right-sided renal abscess. The patient initially prese nted to the hospital after feeling extremely cold, with nausea and vomiting. This was associated wit h some expressive aphasia. Evaluation for stroke was undertaken and did not reveal evidence of strok e, and aphasia has resolved. During the course of her hospital stay, she did have a fever, prompting blood cultures. Blood cultures both showed growth of E coli. The patient did have some right-sided flank pain, but no dysuria, urgency or frequency. Further evaluation with abdominal ultrasound show ed a 2.0 x 1.9 x 1.8 cm complex cystic lesion consistent with either neoplasm or focal renal abscess. Subsequent imaging with CT scan of the abdomen and pelvis was undertaken, showing a 2.4 x 2.2 cm re nal abscess with perinephric fluid and right-sided pericolic fluid. No evidence of nephrolithiasis o r hydronephrosis. The patient has received empiric treatment with ceftriaxone. Susceptibilities on the E coli isolate are currently pending. The patient last had a temperature of 38.3 on 08/31/2017. She is currently being considered for drainage of her renal abscess by percutaneous means. Given th e above findings, I am now asked to assist in her ongoing management. PAST MEDICAL HISTORY: Microvascular HOOD FITTER disease, polio as a child, hypothyroidism, heart failure, pr obable dementia. PAST SURGICAL HISTORY: Appendectomy, hysterectomy, tonsillectomy. CURRENT MEDICATIONS: Ceftriaxone 1 g IV daily, Lovenox 40 mg subcu daily, Avapro 150 mg p.o. q.h.s., aspirin 162 mg p.o. q.h.s., Synthroid 75 mcg p.o. daily. ALLERGIES: No known drug allergies. SOCIAL HISTORY: Patient quit smoking many years ago. Drinks eusebio on occasion. No drug use. FAMILY HISTORY: Breast cancer in her mother, stroke in her father. REVIEW OF SYSTEMS: Outside of that noted in the HPI, the remainder of 10-system review is unremarkab le. PHYSICAL EXAMINATION: VITAL SIGNS: Temperature 36.9, heart rate 61, respiratory rate 14, blood pres sure 127/71, oxygen saturation 91% on room air. GENERAL: Patient is a thin female in no acute distr ess. She appears nontoxic. HEENT: There is no scleral icterus, conjunctival injection, or conjunct ival petechiae. Oropharynx is clear, without lesions. Dentition is in good repair. Mucous membrane s are moist. There is no nasal discharge. There is no tenderness over the frontal, maxillary or mas toid area. NECK: Supple, without palpable lymphadenopathy or thyromegaly. CHEST: Clear to auscult ation bilaterally, without adventitious sounds. The respiratory effort is normal. CARDIOVASCULAR: Regular rate and rhythm, with a 2/6 systolic ejection murmur at the left upper sternal border. There are no gallops or rubs present. ABDOMEN: Soft, nontender, nondistended. There is no palpable orga nomegaly. Bowel sounds are present. BACK: There is no CVA tenderness bilaterally. MUSCULOSKELETAL : There is no cyanosis, clubbing, or edema. SKIN: No stigmata of endocarditis. Skin is warm and d ry to touch. NEUROLOGIC: The patient is alert and interacts appropriately with examiner, other than having some episodes of mild confusion. Cranial nerves 2-12 are grossly intact. Muscle tone is nor mal, with decreased bulk throughout. LYMPHATICS: No cervical or supraclavicular nodes palpable. LABORATORY DATA: White blood cell count 9.5, hematocrit 30.2, platelets 145, creatinine 0.7, AST 30, ALT 36, bilirubin 2.1 (unconjugated bilirubin 1.8), albumin 4.0. Urinalysis showed 3-5 white blood cells with trace bacteria and 2+ blood with 5-10 red blood cells. Influenza PCR testing was negative . Blood cultures show 2 of 2 sets from 08/30/2017 with E coli. Urine culture shows 2 colony types a t 8000 colony-forming units per mL. Imaging as outlined above, which has been reviewed and interpret ed by me today. IMPRESSION: Right-sided renal abscess due to Escherichia coli: Clinical presentation and radiograph ic findings compatible with renal abscess due to E coli given presence of E coli in blood. Abscess m easures less than 5 cm, which typically will respond to medical management and does not require drain age for resolution. Will review images further with Radiology given comment that some finding was pr esent on ultrasound in this location in 2010. Susceptibility profile on E coli is currently pending. RECOMMENDATIONS: 1. Agree with empiric ceftriaxone pending susceptibility profile of E coli. 2. Anticipate prolonged duration of antibiotic therapy with need for repeat imaging over time to ens ure resolution of renal abscess. 3. Recommend holding off on drainage of renal abscess given size is less than 5 cm, and typically re nal abscess smaller than 5 cm will resolve with antibiotic therapy alone. If the patient were not to have clinical resolution of symptoms in the setting of ongoing antibiotic therapy, then would potent ially need to revisit this question. 4. Final antibiotic decision-making based on susceptibility as available. 5. Thank you for this consultation. We will continue to follow the patient with you. /[id number]/MODL
[2017-09-02] MEDS: IRBESARTAN 150 MG TAB PO SCH (20:18)
[2017-09-02] MEDS: CHOLECALCIFEROL VIT D3 1,000 UNITS TAB PO SCH (20:21)
[2017-09-02] MEDS: ASPIRIN 81 MG CHEWABLE TAB PO SCH (21:24)
[2017-09-03] MEDS: LEVOTHYROXINE 75 MCG TAB PO SCH (05:27)
--- NOTE | 2017-09-03 10:35 | ASMTCMCOM ---
CM Note CM Note Notes: Chart reviewed. Discussed with Dr. Leon. Cheyenne has worsening dementia and has had falls. OT recommends HHC. PT feels patient at baseline, but patient would benefit from Home PT safety eval. She is not medically cleared to dc yet. CM to follow. Date Signed: 09/03/2017 10:34 AM Electronically Signed By:Marya Mills RN
--- NOTE | 2017-09-03 13:57 | PCMIDPN ---
Assessment/Plan: Assessment/Plan: * Right renal abscess with concomitant E coli bacteremia: E coli is fluoroquinolone susceptible. Long discussion with patient and regarding treatment options with choices of continuing oral fluoroquinolone which has excellent oral bioavailability and precludes need for PICC line/IV therapy versus continued IV ceftriaxone. Primary down side of oral fluoroquinolone is potential for confusion (some baseline confusion currently present) which was reviewed. Will initiate therapy today with oral ciprofloxacin so this can be further assessed prior to discharge. If tolerates well, anticipate discharge home tomorrow with anticipated 4-6 week course of antibiotic therapy. Risks and benefits of ciprofloxacin including potential for tendinopathy, confusion, allergic reaction, diarrhea, and need to avoid concomitant polyvalent cations discussed. Time spent, greater than 35 min, of which greater than half was spent in education/counseling/coordination of care regarding right renal abscess due to E coli and planned antibiotic therapy with transition to oral quinolone including discussion of risks and benefits. Plan also reviewed with Dr. Leon. 09/03/17 13:54 Subjective: Patient feels significantly improved. Mild bilateral flank pain. Objective: Vital Signs Temp Pulse Resp BP Pulse Ox 36.8 C 68 16 131/87 H 93 09/03/17 08:12 09/03/17 08:12 09/03/17 08:12 09/03/17 08:12 09/03/17 08:12 Laboratory Results 09/02/17 04:18 09/02/17 04:18 09/02/17 09/03/17 09/04/17 05:59 05:59 05:59 Intake Total 1501 2400 Balance 1501 2400 Ceftriaxone # 4 Blood cultures 2/2 sets E coli which is fluoroquinolone susceptible Blood cultures 09/01/2017 no growth - Physical Exam General Appearance: alert, no apparent distress EENT: No scleral icterus, No thrush Respiratory: lungs clear, No respiratory distress Cardiac/Chest: regular rate, rhythm Abdomen: non-tender, No distended Back: No CVA tenderness Neuro/Psych: other (Mild confusion at times) ICD10 Worksheet Patient Problems: Problems Problem Status Onset Fever Acute Urinary tract infection Acute
--- NOTE | 2017-09-03 18:45 | HOSPPROG ---
Hospitalist Progress Note Assessment/Plan: #E coli bacteremia/ renal abscess: guidelines rec medical treatment over intervention with abscess <5cm. Favoring oral treatment rather than PICC and IV abx. ID changed to cipro for 4-6 weeks. ID educated on side effects including tendinopathy, confusion, etc #Aphasia: h/o TIA. Old lacunar infarct on CT. h/o SVT on Holter, no afib (January 2017) -cont telemetry, PT/OT/speech -no new abnormality on MRI/MRA. TTE normal. Suspect memory loss from underlying dementia. FU with Dr. Mckeon #Leukocytosis: resolved on abx #Hypokalemia: repleted #Diet: regular #DVT ppx: Lovenox #Disp:cont inpt admission to ensure tolerates Cipro. If stable, can DC in morning Subjective: no overnight complaints Objective: Vital Signs Temp Pulse Resp BP Pulse Ox 37.2 C 66 14 152/86 H 95 09/03/17 15:33 09/03/17 15:33 09/03/17 15:33 09/03/17 15:33 09/03/17 15:33 Laboratory Results 09/02/17 04:18 09/02/17 04:18 09/02/17 09/03/17 09/04/17 05:59 05:59 05:59 Intake Total 1501 2400 1500 Balance 1501 2400 1500 PT 13.6 SEC (12.0-15.0) 08/30/17 19:50 INR 1.02 (0.83-1.16) 08/30/17 19:50 - Physical Exam Constitutional: no apparent distress Eyes: anicteric sclera Ears, Nose, Mouth, Throat: moist mucous membranes Cardiovascular: regular rate and rhythym Respiratory: no respiratory distress Gastrointestinal: normoactive bowel sounds Genitourinary: no bladder fullness Musculoskeletal: full muscle strength Neurologic: CN II-XII Intact Psychiatric: interacting appropriately ICD10 Worksheet Patient Problems: Problems Problem Status Onset Fever Acute Urinary tract infection Acute
[2017-09-03] MEDS: CIPROFLOXACIN 500 MG TAB PO SCH (20:23)
[2017-09-03] MEDS: CHOLECALCIFEROL VIT D3 1,000 UNITS TAB PO SCH (20:24)
[2017-09-03] MEDS: IRBESARTAN 150 MG TAB PO SCH (20:25)
[2017-09-03] MEDS: ASPIRIN 81 MG CHEWABLE TAB PO SCH (22:06)
[2017-09-03 22:24] VITALS: O2SAT 96
[2017-09-04] MEDS: LEVOTHYROXINE 75 MCG TAB PO SCH (05:41)
[2017-09-04 08:19] VITALS: BP 124/74; PULSE 64; RESP 16; TEMP 98.5
--- NOTE | 2017-09-04 08:42 | PDIAF ---
- Diagnosis Diagnosis: renal abscess Code Status: Full Code - Medication Management Discharge Medications: Medications to Continue on Transfer Irbesartan [Avapro 150 mg (*)] 150 mg PO HS 08/26/09 [Last Taken 08/29/17] Levothyroxine [Synthroid 75 mcg (*)] 75 mcg PO DAILY06 08/26/09 [Last Taken 11/12] Aspirin [Aspirin 81mg (*)] 162 mg PO HS 09/13/16 [Last Taken 08/29/17] Cholecalciferol Vit D3 [Vitamin D3 (*)] 1,000 units PO HS 08/30/17 [Last Taken 08/29/17] Herbals/Supplements -Info Only 1 ea PO DAILY 08/30/17 [Last Taken Unknown] Ciprofloxacin [Cipro] 500 mg PO BID #14 tab 09/04/17 [Last Taken Unknown] Discharge Medications: Refer to the Discharge Home Medication list for PRN reason. - Orders Services needed: Home Care, Physical Therapy (safety evalution) Home Care Face to Face: I certify that this patient was under my care and that I had the required [id number] encounter meeting the encounter requirements on the discharge day. My findings support the fact that the patient is homebound as defined in Home Care Face to Face Continued: CMS Chapter 7 Medicare Benefits Manual 30.1.1 , The condition of the patient is such that there exists a normal inability to leave home and consequently, leaving home would require a considerable and taxing effort. Diet Recommendation: no restrictions on diet Diet Texture: Regular Texture Diet - Follow Up Care Current Providers and Referrals: Zarina Romano MD [Primary Care Provider] - As per Instructions Lamin Mckeon MD [Medical Doctor] - follow up in 2 weeks Aayush Barroso MD [Medical Doctor] -
--- NOTE | 2017-09-04 09:05 | GDS ---
[f rep st] DISCHARGE SUMMARY DISCHARGE DIAGNOSES: 1. Escherichia coli bacteremia. 2. Renal abscess. 3. Aphasia. 4. History of dementia. 5. Leukocytosis. 6. Hypokalemia. 7. Hypothyroidism. 8. Polio. HISTORY OF PRESENT ILLNESS: A 76-year-old female, history of likely dementia, who presented with aph harman. She went for a walk with her and when she got home was complaining of some leg pain. She then had profuse emesis and then subsequently difficulty speaking. All these symptoms resolved b y the time she arrived in the ER and she was feeling fine. She denies any fevers, chills, or sweats. No dysuria. No flank pain or abdominal pain. HOSPITAL COURSE BY PROBLEM: 1. E coli bacteremia: Source renal abscess demonstrated on CT. Guidelines show that less than 5 cm should respond nicely to antibiotics. She was treated with ceftriaxone here and transitioned to cip rofloxacin twice daily per ID recommendations. She will follow up with Dr. Barroso as an outpatient. S he did not display any confusion with dosing last night. However, she does have underlying dementia and her was educated by both myself and Dr. Barroso on risk of increased confusion and her husba nd was told to call either her PCP or Dr. Barroso if warranted to change antibiotics. 2. Renal abscess: Again, plan as stated above. 3. Hypokalemia, repleted. 4. Leukocytosis secondary to acute infection, resolved with fluids, antibiotics. 5. Aphasia: Suspect this was secondary to underlying infection. MRI did not show acute stroke. Sh ted has evidence of prior lacunar stroke. She is followed by Dr. Mckeon as an outpatient. There was no e vidence of arrhythmias and had recent Holter monitor that was negative for atrial fibrillation as wel l. Echo was normal. DISPOSITION: Patient is stable for discharge home with her . Will have a PT home safety eval uation. NEW MEDICATIONS: Ciprofloxacin 500 mg twice daily. FOLLOW UP: 1. Dr. Barroso, infectious Disease in 1-[address] Mckeon. PHYSICAL EXAM: GENERAL: Today, no acute distress. VITAL SIGNS: Temperature 36.9, blood pressure 1 24/74, heart rate 60, respirations 16, 96% on room air. HEENT: PERRLA. EOMI. Oropharynx clear. C V: Regular rate and rhythm. No murmurs, gallops, rubs. LUNGS: Clear bilaterally. ABDOMEN: Soft, nontender, nondistended. : No suprapubic or CVA tenderness. MUSCULOSKELETAL: 5/5 upper lower e xtremity strength. NEURO: 2 through 12 intact. PSYCH: Alert, oriented, answering appropriately. /[id number]/MODL
[2017-09-04] MEDS: CIPROFLOXACIN 500 MG TAB PO SCH (09:32)
--- NOTE | 2017-09-04 10:22 | ASMTCMCOM ---
CM Note CM Note Notes: Patient medically cleared for dc to home. [facility] notified regarding HHC orders. Final orders in chart. Plan home with and [facility] PT and OT. CM available should any needs arise. Date Signed: 09/04/2017 10:22 AM Electronically Signed By:Marya Mills RN
== END 2017-09-04 11:17 | disposition home or self-care (01) | DRG 690 ==
LOC: F1N 22:25 → OBSVTOIN 08-31 11:34 → F3N 08-31 15:12
PROVIDERS: ADMIT Student in an Organized Health Care Education/Training Program; ATTEND Student in an Organized Health Care Education/Training Program
DX: N15.1 Renal and perinephric abscess (principal); R78.81 Bacteremia; B96.20 Unspecified Escherichia coli [E. coli] as the cause of diseases classified elsewhere; N39.0 Urinary tract infection, site not specified; E87.6 Hypokalemia; R47.01 Aphasia; I50.9 Heart failure, unspecified; E03.9 Hypothyroidism, unspecified; F03.90 Unspecified dementia, unspecified severity, without behavioral disturbance, psychotic disturbance, mood disturbance, and anxiety; Z87.891 Personal history of nicotine dependence; Z86.12 Personal history of poliomyelitis
CPT/HCPCS: 96365; 97161-GP; 97165-GO; 97535-GO; G0378; G8978-GP-CI; G8979-GP-CI; G8980-GP-CI; G8987-GO-CI; G8988-GO-CI; J0696; J1650; Q9967

== ENCOUNTER → 2017-10-11 | Outpatient (CLI) | payer OTHER ==
[~2017-10-11] MED LIST: IOPAMIDOL (ISOVUE-300) 100 ML BTL ONE
== END ==
LOC: FIMAGING 11:55
PROVIDERS: ATTEND Internal Medicine Infectious Disease
DX: N15.1 Renal and perinephric abscess (principal); K59.00 Constipation, unspecified; N28.9 Disorder of kidney and ureter, unspecified; Z79.2 Long term (current) use of antibiotics
CPT/HCPCS: 74160; Q9967